=== PATIENT | female | born 1985 | race Two or more races ===

== ENCOUNTER 2024-10-23 17:32 | Emergency (ER) | payer SELFPAY ==
[2024-10-23 17:52] VITALS: BP 130/85; PULSE 103; RESP 18; TEMP 36.9; O2SAT 97
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
== END 2024-10-23 20:01 | disposition home or self-care (01) ==
PROVIDERS: Emergency Provider Family Medicine
DX: S62.616A Displaced fracture of proximal phalanx of right little finger, initial encounter for closed fracture (principal); Y92.149 Unspecified place in prison as the place of occurrence of the external cause; Y04.0XXA Assault by unarmed brawl or fight, initial encounter; M25.512 Pain in left shoulder
CPT/HCPCS: 73030; 73130; 99284